=== PATIENT | female | born 1975 | race Caucasian/White ===

== ENCOUNTER → 2018-07-03 | Outpatient (CLI) | payer BC, OTHER | LOC: CAT 12:35 | DX: H53.9 Unspecified visual disturbance (principal); R11.0 Nausea; S09.90XA Unspecified injury of head, initial encounter; X58.XXXA Exposure to other specified factors, initial encounter; Y93.89 Activity, other specified; Y92.89 Other specified places as the place of occurrence of the external cause; Y99.8 Other external cause status ==